=== PATIENT | female | born 1950 | race Caucasian/White ===

== ENCOUNTER → 2019-01-15 07:37 | Outpatient (CLI) | payer MEDICARE, OTHER, SELFPAY ==
[2019-01-15 09:00] LABS: Hematocrit 44.3 % (36-46); Hemoglobin 15.4 g/dL (12.0-16.0); Mean Corpuscular HGB Conc 34.8 % (30-36); Mean Corpuscular Hemoglobin 31.4 PG (26-34); Mean Corpuscular Volume 90.2 fL (80-100); Platelet Count 285 X10^3/uL (150-400); Red Blood Cell Count 4.91 X10^6/uL (4.0-5.2); Red Cell Distribution Width 12.8 % (11.6-14.8)
[2019-01-15 09:18] LABS: Hemoglobin A1C% w Est Avg Glu 5.1 % (4.0-6.0)
[2019-01-15 09:20] LABS: Alanine Aminotransferase 20 IU/L (9-52); Albumin 4.2 g/dL (3.5-5.0); Albumin Globulin Ratio 1.6 (1.0-2.8); Alkaline Phosphatase 73 U/L (38-126); Aspartate Aminotransferase 23 IU/L (14-36); BUN Creatinine Ratio 21.3 (6-22); Bilirubin Total 0.5 mg/dL (0.2-1.3); Blood Urea Nitrogen 17 mg/dL (7-17); Calcium 9.3 mg/dL (8.4-10.2); Carbon Dioxide 32 mmol/L (22-32); Chloride 97 mmol/L (98-107); Cholesterol 238 mg/dL (140-199); Estimated Glomerular Filt Rate > 60.0 mL/min (>60); Globulin 2.7 g/dL (1.7-4.1); Glucose 81 mg/dL (80-110); HDL Cholesterol 72 mg/dL (40-60); HEMOLYSIS < 15 (0-50); LDL Cholesterol Calculated 147 mg/dL (<100); Potassium 4.3 mmol/L (3.4-5.1); Sodium 136 mmol/L (137-145); Total Protein 6.9 g/dL (6.3-8.2); Triglycerides 94 mg/dL (35-150); Uric Acid 5.5 mg/dL (2.5-6.2)
[2019-01-15 09:25] LABS: Neutrophils Absolute Manual 2300 /uL (3000-5900); RBC Morphology Normal Morphology; Total Cells Counted 100
[2019-01-15 09:34] LABS: Vitamin D 25 Hydroxy (D3) 50.6 ng/mL (30.0-100.0)
[2019-01-15 09:40] LABS: Free T4, Direct Thyroxine 1.46 ng/dL (0.78-2.19)
[2019-01-15 09:53] LABS: Thyroid Stimulating Hormone 1.06 uIU/mL (0.47-4.68)
== END ==
PROVIDERS: PCP Family Medicine; Visit Provider Family Medicine
DX: E78.5 Hyperlipidemia, unspecified (principal); E66.3 Overweight; E06.3 Autoimmune thyroiditis; R79.89 Other specified abnormal findings of blood chemistry; E55.9 Vitamin D deficiency, unspecified
CPT/HCPCS: 36415; 80053; 80061; 82306; 83036; 84439; 84443; 84481; 84550; 85025

== ENCOUNTER → 2019-01-19 09:49 | Outpatient (CLI) | payer MEDICARE, OTHER, SELFPAY ==
[2019-01-19 10:53] LABS: Hematocrit 45.4 % (36-46); Hemoglobin 15.4 g/dL (12.0-16.0); Mean Corpuscular Hemoglobin 31.2 PG (26-34); Mean Corpuscular Volume 91.9 fL (80-100); Platelet Count 287 X10^3/uL (150-400); Red Blood Cell Count 4.94 X10^6/uL (4.0-5.2); White Blood Cell Count 5.8 X10^3/uL (4.5-11.0)
[2019-01-19 11:28] LABS: Neutrophils Absolute Manual 3422 /uL (3000-5900); Total Cells Counted 100
[2019-01-19 11:42] LABS: RBC Morphology Normal Morphology
== END ==
PROVIDERS: PCP Hospitalist; Visit Provider Hospitalist
DX: R88.8 Abnormal findings in other body fluids and substances (principal)
CPT/HCPCS: 36415; 85025

== ENCOUNTER → 2019-03-16 12:49 | Outpatient (CLI) | payer MEDICARE, OTHER, SELFPAY | PROVIDERS: PCP Hospitalist; Visit Provider Student in an Organized Health Care Education/Training Program | DX: Z13.820 Encounter for screening for osteoporosis (principal); M85.852 Other specified disorders of bone density and structure, left thigh; E07.9 Disorder of thyroid, unspecified | CPT/HCPCS: 77080 ==